=== PATIENT | female | born 1955 | race Caucasian/White ===

== ENCOUNTER 2016-04-20 15:19 | Emergency (ER) | payer OTHER ==
--- NOTE | 2016-04-20 17:31 | DIAGNOSTIC IMAGING REPORT ---
PROCEDURE: XR CHEST 2 VIEW INDICATION: SHORTNESS OF BREATH TECHNIQUE: PA and lateral views. COMPARISON: None. FINDINGS: Lungs are clear. Heart and mediastinum are normal. Thorax is normal. IMPRESSION: 1. Negative chest.
--- NOTE | 2016-04-20 19:47 | ED CLINICAL REPORT ---
Clinical Report - Physicians/Mid Levels [facility] [place] [address] 04/20/2016 15:22 Patient: UMA KHALIL Time Seen: 17:03 Apr 20 2016. Arrived- By private vehicle. Historian- patient. CPT: ER phys charges level 4 (#[id number]). HISTORY OF PRESENT ILLNESS Chief Complaint: DYSPNEA and PAIN UPON INSPIRATION. 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 The dyspnea is described as moderate and is worsened by walking and exertion and is improved by rest. The patient has had a cough and dyspnea on exertion. No sputum production, fever, sweating episodes or wheezing. No chest pain or discomfort, calf pain or foot swelling. (orthopnea). Similar symptoms previously: As bad. Diagnosis: chronic obstructive pulmonary disease and pneumonia (PE). Recent medical care: Not recently seen/assessed. REVIEW OF SYSTEMS No eye irritation, sore throat, sinus drainage, nausea or vomiting. No abdominal pain, fainting episodes, difficulty with urination, skin rash or enlarged lymph nodes. No joint pain. The patient has had a nasal discharge. All systems otherwise negative, except as recorded above. PAST HISTORY DVT - Deep Venous Thrombosis. Pulmonary Embolism. Hypertension. Sprain. Muscle Strain, Lower Extremity. Migraine Headache. Ovarian Cyst. Pneumonia. Allergic Reaction. --16:04 Chanell Walls R.N. ADDITIONAL SURGERIES: Knee Surgery. Medications: headache medication. Allergies: Acetaminophen. Augmentin. SOCIAL HISTORY Heavy tobacco smoker (cigarette)- less than 1 pack per day. ADDITIONAL NOTES The nursing notes have been reviewed. PHYSICAL EXAM Vital Signs: 04/20/2016 15:59 BP: 160/78. HR: 90. RR: 22. O2 saturation: 99%. Temp: 97.7 F. Appearance: Alert. Patient in mild distress. Eyes: Eyes normal inspection. ENT: Pharynx normal. Neck: Normal inspection. No jugular venous distention. Neck supple. CVS: Normal heart rate and rhythm. Heart sounds normal. Pulses normal. No cardiac murmur. Respiratory: Mild respiratory distress. Moderate right mid- costochondral tenderness. The tenderness is well-localized and reproduces the patient's subjective complaint. Decreased air movement. Breath sounds normal. Abdomen: Soft and nontender. Back: Normal inspection. Skin: Skin warm. Normal skin color. No rash. Extremities: Extremities exhibit normal ROM. No calf tenderness. No lower extremity edema. Neuro: Oriented X 3. No motor deficit. No sensory deficit. Reflexes normal. LABS, X-RAYS, AND EKG EKG: Normal EKG. Chest X-ray: No acute disease. Views: PA and lateral. Technique: good. The X-rays were independently viewed by me and interpreted contemporaneously by me. Laboratory Tests: UA-Culture if indicated: (JUNIOR: 04/20/2016 17:30) ( [facility] 04/20/2016 18:01) Final results Test Result Flag Units (Reference) URINE COLOR YELLOW URINE APPEARANCE CLEAR URINE GLUCOSE NEGATIVE (NEGATIVE) URINE BILIRUBIN NEGATIVE (NEGATIVE) URINE KETONE NEGATIVE (NEGATIVE) URINE SPECIFIC GRAVITY 1.020 (1.010-1.030) URINE PH 6.0 (5.0-8.0) URINE PROTEIN NEGATIVE (NEGATIVE) URINE UROBILINOGEN 0.2 EU/dL (0.2-1.0) URINE NITRITE NEGATIVE (NEGATIVE) URINE BLOOD NEGATIVE (NEGATIVE) URINE LEUK ESTERASE NEGATIVE (NEGATIVE) URINE RBC NONE SEEN rbc/hpf (0-1) URINE WBC 0-1 wbc/hpf (0-1) URINE EPITHELIAL CELLS 1-3 EPI/hpf (0-5) URINE BACTERIA NONE SEEN (NONE SEEN) URINE COMMENT CULT NOT INDICATED URINE CULTURES ARE SET-UP BASED ON THE FOLLOWING CRITERIA:POSITIVE NITRITEPOSITIVE LEUKOCYTE ESTERASEGREATER THAN 10 WHITE BLOOD CELLSMODERATE (2+) OR GREATER BACTERIA CBC w Diff: (JUNIOR: 04/20/2016 16:10) ( MsgRcvd 04/20/2016 17:22) Final results Test Result Flag Units (Reference) WHITE BLOOD COUNT 5.4 K/uL (4.5-11.5) RED BLOOD COUNT 5.02 M/uL (4.00-5.20) HEMOGLOBIN 14.9 gm/dL (12.0-16.0) HEMATOCRIT 45.7 % (36.0-46.0) MEAN CELL VOLUME 91 fL (80-100) MEAN CORPUSCULAR HGB 30 pg (26-34) MEAN CORPUSCULAR HGB CONC 33 g/dL (31-37) RED CELL DISTRIBUTION WIDTH 13.6 % (11.6-14.8) PLATELET COUNT 235 K/uL (150-400) NEUTROPHIL % 47.8 L % (50-75) LYMPH % 36.5 % (25-40) MONO % 11.2 % (3-14) EOSINOPHIL % 3.8 % (0-4) BASOPHIL % 0.7 % (0-2) [id number]: (JUNIOR: 04/20/2016 16:10) ( [facility] 04/20/2016 17:27) Final results Test Result Flag Units (Reference) D-DIMER QUANTITATIVE 0.41 ug/mLFEU (0.27-0.52) The primary value of this quantitative assay relates toits negative predictive value (i.e. exclusion) of pulmonaryembolism/deep vein thrombosis/DIC.Elevated levels of d-dimer may also occur with:, age, cancer, inflammation, liver disease,post-op, infection, hematoma, coronary disease, peripheralarteriopathy, bleeding disorders and thrombolytic treatment.Results should be correlated with other clinical andradiological data.Testing Methodology: Latex Immunoassay Urine Drug Screen: (JUNIOR: 04/20/2016 17:30) ( [facility] 04/20/2016 18:14) Final results Test Result Flag Units (Reference) AMPHETAMINE/METHAMPHETAMINE NEGATIVE (NEGATIVE) BARBITURATE NEGATIVE (NEGATIVE) BENZODIAZEPINE NEGATIVE (NEGATIVE) CANNABINOID NEGATIVE (NEGATIVE) COCAINE NEGATIVE (NEGATIVE) ECSTASY NEGATIVE (NEGATIVE) METHADONE NEGATIVE (NEGATIVE) OPIATE NEGATIVE (NEGATIVE) The urine drug screen is a qualitative screening test fordrug overdose and abuse. All screen results should beconsidered as presumptive.Drugs screened for are as follows:BenzodiazepinesCocaineAmphetamines/MetamphetaminesTHC (Tetrahydrocannabinol)OpiatesBarbituratesEcstasyMethadonePositive results are unconfirmed. For confirmation, notifythe lab for the specimen to be sent to the reference lab.All confirmations must be performed by a differentmethodology.The ingestion of natural herbal and plant productscontaining Ephedra/Ephedra metabolites can produce in urineone or more substances capable of cross reacting withamphetamine/methamphetamine immunoassays. These testsprovide a preliminary result only. A more specificalternative chemical method must be used to obtain aconfirmed analytical result. BNP: (JUNIOR: 04/20/2016 16:10) ( [facility] 04/20/2016 17:50) Final results Test Result Flag Units (Reference) B-TYPE NATRIURETIC PEPTIDE < 5.0 L pg/ml (5-100) TSH: (JUNIOR: 04/20/2016 16:10) ( [facility] 04/20/2016 17:45) Final results Test Result Flag Units (Reference) THYROID STIMULATING HORMONE 1.529 uIU/mL (0.30-3.74) CHEM 13 PANEL: (JUNIOR: 04/20/2016 16:10) ( [facility] 04/20/2016 17:41) Final results Test Result Flag Units (Reference) GLUCOSE 115 H mg/dL (70-110) BUN 10 mg/dL (7-18) CREATININE 0.8 mg/dL (0.6-1.3) Estimated GFR >60 mL/min Estimated GFR- >60 mL/min Note: Persistent reduction over 3 months in eGFR<60 mL/min/1.73 m2 defines CKD. Patients with eGFR values>=60 mL/min/1.73 m2 may also have CKD if evidence ofpersistent proteinuria. Additional information may be foundat www.kidney.org. SODIUM 142 mmol/L (136-145) POTASSIUM 3.8 mmol/L (3.5-5.1) CHLORIDE 105 mmol/L (98-107) CARBON DIOXIDE 31 mmol/L (21-32) CALCIUM 9.4 mg/dL (8.5-10.1) TOTAL PROTEIN 6.5 g/dL (6.4-8.2) ALBUMIN 3.4 g/dL (3.3-5.0) BILIRUBIN, TOTAL 0.1 mg/dL (0.0-1.0) ALKALINE PHOSPHATASE 93 U/L (46-116) AST (SGOT) 39 H U/L (15-37) ALT (SGPT) 29 U/L (12-78) MAGNESIUM 1.9 mg/dL (1.8-2.4) CPK 36 U/L (24-260) TROPONIN I <0.05 ng/mL (0.00-1.5) TROPONIN REFERENCE RANGE:<0.1 NEGATIVE0.1-1.5 INDETERMINANT>1.5 POSITIVE . PROGRESS AND PROCEDURES Course of Care: Heplock Albuterol HHN with pre-peak of 250 and post of 300. Pt breathing better. Patient/family counseled. Disposition: Discharged. Condition: stable and improved. CLINICAL IMPRESSION Acute exacerbation of COPD (emphysematous) Right and left chest wall pain. INSTRUCTIONS No strenuous activity. Rest. Avoid tobacco smoke. Do not smoke. Warnings: Further evaluation is necessary. GENERAL WARNINGS: Return or contact your physician immediately if your condition worsens or changes unexpectedly, if not improving as expected, or if other problems arise. Your Current Medications: CONTINUE TAKING THE FOLLOWING MEDICATIONS: headache medication*. Prescription Medications: Albuterol HFA oral inhaler: inhale 2 puffs via spacer every 4 hours as needed for difficulty breathing, until symptoms improve. Dispense one (1) unit. No refill. oxycodone 5 mg po q 6 hours prn pain. # 15 no refill. Follow-up: Follow up with your doctor in three days. Call for an appointment. Understanding of the discharge instructions verbalized by patient and family. Discharge instructions reviewed with and understanding was verbalized by spouse. (Electronically signed by Omar Mackenzie MD 04/21/2016 22:11)
--- NOTE | 2016-04-20 19:47 | ED NURSING NOTES ---
Clinical Report - Nurses [facility] [place] [address] 04/20/2016 15:22 Patient: UMA KHALIL TRIAGE Triage time 15:59. Acuity: LEVEL 3. Chief Complaint: SHORTNESS OF BREATH and DIFFICULTY BREATHING and (pain when taking a deep breath in.). Alert. No acute distress. ( Pt. states she has had x3 PE's in the past also has had multiple episodes of pneumonia. She is here tonight because she is concerned she may have another PE.). SEPSIS SCREEN: Sepsis Screen. Negative (no infection suspected/documented). ARLEEN COMA SCORE: [place] Coma Scale: 15- eyes open spontaneously (4); best verbal response- oriented x 4 (5); best motor response- obeys commands (6). --16:04 Chanell Walls R.N. 15:59 04/20/16. BP: 160/78. HR: 90. RR: 22. O2 saturation: 99%. Temp: 97.7 F. Pain level now 7/10. --16:04 Chanell Walls R.N. Weight: 57.6 kg stated. Height/Length: 65 inches Per Patient. BMI: 21.2. --16:03 Chanell Walls R.N. Medications headache medication. --16:03 Chanell Walls R.N. Allergies Augmentin. --16:03 Chanell Walls R.N. Acetaminophen. --16:03 Chanell Walls R.N. History Arrived by private vehicle. Historian: patient. Accompanied by friend. Primary physician (Dandy). Onset. (3 days ago). 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 (last dose around 1400 today). SOCIAL HX: Light tobacco smoker (cigarette)- less than 1/2 a pack per day. No alcohol use or drug use. No infectious disease exposure. ABUSE ASSESSMENT: Abuse assessment: The patient was asked "Do you feel safe in your home?" and "Has anyone hurt you or threatened to hurt you?". No report of abuse. SELF HARM ASSESSMENT: A self harm assessment was performed. The patient answered "no" to the question "Do you have thoughts of harming or killing yourself?" and "Have you recently had thoughts about harming or killing others?". NUTRITIONAL RISK ASSESSMENT: The nutritional risk assessment revealed no deficiencies. FUNCTIONAL ASSESSMENT: Functional assessment: no impairments noted. LEARNING NEEDS ASSESSMENT: The learning needs assessment revealed no barriers. --16:04 Chanell Walls R.N. PAST MEDICAL HX: Immunizations: status is unknown. --16:04 Chanell Walls R.N. PROBLEMS: DVT - Deep Venous Thrombosis. Pulmonary Embolism. Hypertension. Sprain. Muscle Strain, Lower Extremity. Migraine Headache. Ovarian Cyst. Pneumonia. Allergic Reaction. --16:04 Chanell Walls R.N. ADDITIONAL SURGERIES: Knee Surgery. --16:04 Chanell Walls R.N. Interventions ID band on patient. Ambulatory. --16:04 Chanell Walls R.N. PHYSICAL ASSESSMENT Ambulatory to room. GENERAL / NEURO / PSYCH: Alert. Appears in no acute distress. HEENT: Mucous membranes are pink. RESPIRATORY: No respiratory distress. Respirations not labored. CVS: Capillary refill less than 2 seconds. SKIN: Skin is warm and dry. --16:05 Chanell Walls R.N. NURSING PROGRESS NOTES monitoring analyst, pulse oximeter and NIBP monitor placed on patient; athletic monitor- Lead II; monitor alarms on. Patient gowned. Head of bed elevated. Two patient identifiers checked. Call light placed in reach. Side rails up x 2. Bed placed in lowest position. Brakes of bed on. Patient ready for evaluation- chart flagged. --16:05 Chanell Walls R.N. 16:14 04/20/2016 Site #1 started via IV in the right antecubital space with an 20g angiocath, with aseptic technique and good blood return; one attempt. Blood drawn: rainbow set. Labeled in the presence of the patient and sent to the lab. Saline lock flushed with 10 mL saline. --16:14 Chanell Walls R.N. Patient and family informed about reason for wait and about plan of care. --17:17 Chanell Walls R.N. 17:16 04/20/16. BP: 132/78. HR: 86. RR: 18. O2 saturation: 99%. --17:17 Chanell Walls R.N. Assisted patient to bathroom; tolerated well. --17:19 Chanell Walls R.N. Patient ID band checked for patient name and birthdate: patient confirmed. Instructions provided to collect clean catch urine and patient verbalized understanding. Clean catch urine collected with return of yellow-colored urine; sample sent to lab for urinalysis and culture. Specimen labeled in the presence of the patient. --17:28 Kimberlyn Benjamin, LYNSEY Tech1 18:57 04/20/2016 Toradol IVP 30 mg given over 2 minute(s) via site #1. Allergies verified and confirmed 5 rights. IV patency established. IV site checked: no pain, redness, or swelling. IV flushed thoroughly pre- and post-medication administration. --18:57 Chanell Walls R.N. 18:58 04/20/2016 Albuterol Neb TX 2.5 mg given. Given by the respiratory therapist. Allergies verified and confirmed 5 rights. --18:59 Chanell Walls R.N. 19:45 04/20/2016 Site #1 removed upon discharge. Catheter intact. Manual pressure and bandaid applied. --19:45 Chanell Walls R.N. DISPOSITION / DISCHARGE 19:51 04/20/16. BP: 146/94. HR: 85. RR: 18. O2 saturation: 100%. Temp: 89.2 F. Pain level now: 07/20. --19:55 Chanell Walls R.N. 19:58. Departure time: 1957. Condition at departure: stable. No learning barriers present. Discharge instructions provided and reviewed with the patient. Reviewed medication(s) side effects, precautions, dosing and course information. Prescription(s) given to the patient. Reviewed referral to family practice for followup. Patient verbalized understanding. Written instructions provided in Sami. The patient was discharged home and accompanied by drawer hardware worker. She left the Emergency Department ambulatory and via private vehicle. [employer] Operations Consultant driving. Medication list reviewed and validated. --20:02 Chanell Walls R.N. Locked/Released at 04/20/2016 20:03 by Chanell Walls R.N.
--- NOTE | 2016-04-20 19:47 | ED CLINICAL REPORT ---
Clinical Report - Physicians/Mid Levels [facility] [place] [address] 04/20/2016 15:22 Patient: UMA KHALIL Time Seen: 17:03 Apr 20 2016. Arrived- By private vehicle. Historian- patient. CPT: ER phys charges level 4 (#[id number]). HISTORY OF PRESENT ILLNESS Chief Complaint: DYSPNEA and PAIN UPON INSPIRATION. This started about 3 days GENERAL PRACTICE and is still present. The dyspnea is described as moderate and is worsened by walking and exertion and is improved by rest. The patient has had a cough and dyspnea on exertion. No sputum production, fever, sweating episodes or wheezing. No chest pain or discomfort, calf pain or foot swelling. (orthopnea). Similar symptoms previously: As bad. Diagnosis: chronic obstructive pulmonary disease and pneumonia (PE). Recent medical care: Not recently seen/assessed. REVIEW OF SYSTEMS No eye irritation, sore throat, sinus drainage, nausea or vomiting. No abdominal pain, fainting episodes, difficulty with urination, skin rash or enlarged lymph nodes. No joint pain. The patient has had a nasal discharge. All systems otherwise negative, except as recorded above. PAST HISTORY DVT - Deep Venous Thrombosis. Pulmonary Embolism. Hypertension. Sprain. Muscle Strain, Lower Extremity. Migraine Headache. Ovarian Cyst. Pneumonia. Allergic Reaction. --16:04 Chanell Walls R.N. ADDITIONAL SURGERIES: Knee Surgery. Medications: headache medication. Allergies: Acetaminophen. Augmentin. SOCIAL HISTORY Heavy tobacco smoker (cigarette)- less than 1 pack per day. ADDITIONAL NOTES The nursing notes have been reviewed. PHYSICAL EXAM Vital Signs: 04/20/2016 15:59 BP: 160/78. HR: 90. RR: 22. O2 saturation: 99%. Temp: 97.7 F. Appearance: Alert. Patient in mild distress. Eyes: Eyes normal inspection. ENT: Pharynx normal. Neck: Normal inspection. No jugular venous distention. Neck supple. CVS: Normal heart rate and rhythm. Heart sounds normal. Pulses normal. No cardiac murmur. Respiratory: Mild respiratory distress. Moderate right mid- costochondral tenderness. The tenderness is well-localized and reproduces the patient's subjective complaint. Decreased air movement. Breath sounds normal. Abdomen: Soft and nontender. Back: Normal inspection. Skin: Skin warm. Normal skin color. No rash. Extremities: Extremities exhibit normal ROM. No calf tenderness. No lower extremity edema. Neuro: Oriented X 3. No motor deficit. No sensory deficit. Reflexes normal. LABS, X-RAYS, AND EKG EKG: Normal EKG. Chest X-ray: No acute disease. Views: PA and lateral. Technique: good. The X-rays were independently viewed by me and interpreted contemporaneously by me. Laboratory Tests: UA-Culture if indicated: (JUNIOR: 04/20/2016 17:30) ( [facility] 04/20/2016 18:01) Final results Test Result Flag Units (Reference) URINE COLOR YELLOW URINE APPEARANCE CLEAR URINE GLUCOSE NEGATIVE (NEGATIVE) URINE BILIRUBIN NEGATIVE (NEGATIVE) URINE KETONE NEGATIVE (NEGATIVE) URINE SPECIFIC GRAVITY 1.020 (1.010-1.030) URINE PH 6.0 (5.0-8.0) URINE PROTEIN NEGATIVE (NEGATIVE) URINE UROBILINOGEN 0.2 EU/dL (0.2-1.0) URINE NITRITE NEGATIVE (NEGATIVE) URINE BLOOD NEGATIVE (NEGATIVE) URINE LEUK ESTERASE NEGATIVE (NEGATIVE) URINE RBC NONE SEEN rbc/hpf (0-1) URINE WBC 0-1 wbc/hpf (0-1) URINE EPITHELIAL CELLS 1-3 EPI/hpf (0-5) URINE BACTERIA NONE SEEN (NONE SEEN) URINE COMMENT CULT NOT INDICATED URINE CULTURES ARE SET-UP BASED ON THE FOLLOWING CRITERIA:POSITIVE NITRITEPOSITIVE LEUKOCYTE ESTERASEGREATER THAN 10 WHITE BLOOD CELLSMODERATE (2+) OR GREATER BACTERIA CBC w Diff: (JUNIOR: 04/20/2016 16:10) ( MsgRcvd 04/20/2016 17:22) Final results Test Result Flag Units (Reference) WHITE BLOOD COUNT 5.4 K/uL (4.5-11.5) RED BLOOD COUNT 5.02 M/uL (4.00-5.20) HEMOGLOBIN 14.9 gm/dL (12.0-16.0) HEMATOCRIT 45.7 % (36.0-46.0) MEAN CELL VOLUME 91 fL (80-100) MEAN CORPUSCULAR HGB 30 pg (26-34) MEAN CORPUSCULAR HGB CONC 33 g/dL (31-37) RED CELL DISTRIBUTION WIDTH 13.6 % (11.6-14.8) PLATELET COUNT 235 K/uL (150-400) NEUTROPHIL % 47.8 L % (50-75) LYMPH % 36.5 % (25-40) MONO % 11.2 % (3-14) EOSINOPHIL % 3.8 % (0-4) BASOPHIL % 0.7 % (0-2) [id number]: (JUNIOR: 04/20/2016 16:10) ( [facility] 04/20/2016 17:27) Final results Test Result Flag Units (Reference) D-DIMER QUANTITATIVE 0.41 ug/mLFEU (0.27-0.52) The primary value of this quantitative assay relates toits negative predictive value (i.e. exclusion) of pulmonaryembolism/deep vein thrombosis/DIC.Elevated levels of d-dimer may also occur with:, age, cancer, inflammation, liver disease,post-op, infection, hematoma, coronary disease, peripheralarteriopathy, bleeding disorders and thrombolytic treatment.Results should be correlated with other clinical andradiological data.Testing Methodology: Latex Immunoassay Urine Drug Screen: (JUNIOR: 04/20/2016 17:30) ( [facility] [place] 04/20/2016 18:14) Final results Test Result Flag Units (Reference) AMPHETAMINE/METHAMPHETAMINE NEGATIVE (NEGATIVE) BARBITURATE NEGATIVE (NEGATIVE) BENZODIAZEPINE NEGATIVE (NEGATIVE) CANNABINOID NEGATIVE (NEGATIVE) COCAINE NEGATIVE (NEGATIVE) ECSTASY NEGATIVE (NEGATIVE) METHADONE NEGATIVE (NEGATIVE) OPIATE NEGATIVE (NEGATIVE) The urine drug screen is a qualitative screening test fordrug overdose and abuse. All screen results should beconsidered as presumptive.Drugs screened for are as follows:BenzodiazepinesCocaineAmphetamines/MetamphetaminesTHC (Tetrahydrocannabinol)OpiatesBarbituratesEcstasyMethadonePositive results are unconfirmed. For confirmation, notifythe lab for the specimen to be sent to the reference lab.All confirmations must be performed by a differentmethodology.The ingestion of natural herbal and plant productscontaining Ephedra/Ephedra metabolites can produce in urineone or more substances capable of cross reacting withamphetamine/methamphetamine immunoassays. These testsprovide a preliminary result only. A more specificalternative chemical method must be used to obtain aconfirmed analytical result. BNP: (JUNIOR: 04/20/2016 16:10) ( [facility] [place] 04/20/2016 17:50) Final results Test Result Flag Units (Reference) B-TYPE NATRIURETIC PEPTIDE < 5.0 L pg/ml (5-100) TSH: (JUNIOR: 04/20/2016 16:10) ( [facility] 04/20/2016 17:45) Final results Test Result Flag Units (Reference) THYROID STIMULATING HORMONE 1.529 uIU/mL (0.30-3.74) CHEM 13 PANEL: (JUNIOR: 04/20/2016 16:10) ( [facility] 04/20/2016 17:41) Final results Test Result Flag Units (Reference) GLUCOSE 115 H mg/dL (70-110) BUN 10 mg/dL (7-18) CREATININE 0.8 mg/dL (0.6-1.3) Estimated GFR >60 mL/min Estimated GFR- >60 mL/min Note: Persistent reduction over 3 months in eGFR<60 mL/min/1.73 m2 defines CKD. Patients with eGFR values>=60 mL/min/1.73 m2 may also have CKD if evidence ofpersistent proteinuria. Additional information may be foundat www.kidney.org. SODIUM 142 mmol/L (136-145) POTASSIUM 3.8 mmol/L (3.5-5.1) CHLORIDE 105 mmol/L (98-107) CARBON DIOXIDE 31 mmol/L (21-32) CALCIUM 9.4 mg/dL (8.5-10.1) TOTAL PROTEIN 6.5 g/dL (6.4-8.2) ALBUMIN 3.4 g/dL (3.3-5.0) BILIRUBIN, TOTAL 0.1 mg/dL (0.0-1.0) ALKALINE PHOSPHATASE 93 U/L (46-116) AST (SGOT) 39 H U/L (15-37) ALT (SGPT) 29 U/L (12-78) MAGNESIUM 1.9 mg/dL (1.8-2.4) CPK 36 U/L (24-260) TROPONIN I <0.05 ng/mL (0.00-1.5) TROPONIN REFERENCE RANGE:<0.1 NEGATIVE0.1-1.5 INDETERMINANT>1.5 POSITIVE . PROGRESS AND PROCEDURES Course of Care: Heplock Albuterol HHN with pre-peak of 250 and post of 300. Pt breathing better. Patient/family counseled. Disposition: Discharged. Condition: stable and improved. CLINICAL IMPRESSION Acute exacerbation of COPD (emphysematous) Right and left chest wall pain. INSTRUCTIONS No strenuous activity. Rest. Avoid tobacco smoke. Do not smoke. Warnings: Further evaluation is necessary. GENERAL WARNINGS: Return or contact your physician immediately if your condition worsens or changes unexpectedly, if not improving as expected, or if other problems arise. Your Current Medications: CONTINUE TAKING THE FOLLOWING MEDICATIONS: headache medication*. Prescription Medications: Albuterol HFA oral inhaler: inhale 2 puffs via spacer every 4 hours as needed for difficulty breathing, until symptoms improve. Dispense one (1) unit. No refill. oxycodone 5 mg po q 6 hours prn pain. # 15 no refill. Follow-up: Follow up with your doctor in three days. Call for an appointment. Understanding of the discharge instructions verbalized by patient and family. Discharge instructions reviewed with and understanding was verbalized by spouse. (Electronically signed by Omar Mackenzie MD 04/21/2016 22:11)
--- NOTE | 2016-04-20 19:47 | ED ORDER SUMMARY ---
..... Patient: UMA KHALIL OrderSheet [facility] VisitID: [id number] [place] [address] 61y, F Registration Date/Time: 04/20/2016 ORDER SHEET Weight: 57.6 kg (stated) Allergies: Augmentin, Acetaminophen GENERAL ORDERS: [employer] (Continuous) (Respiratory Distress) (16:06 04/20/2016 SReitz R.N. per protocol) (16:07 LNations ER Tech1) Pulse oximeter (16:04/20/2016 SReitz R.N. per protocol) (16:07 LNations ER Tech1) EKG - ER Stat (16:04/20/2016 SReitz R.N. per protocol) (16:07 LNations ER Tech1) Chest 2V Urgent (17:09 04/20/2016 Katherin FONG) (17:26 LNations ER Tech1) BNP Urgent (17:10 04/20/2016 Katherin FONG) (17:32 NHouse ER Tech1) D-Dimer Urgent (17:10 04/20/2016 Katherin FONG) (17:32 NHouse ER Tech1) Cardiac Panel Stat (17:10 04/20/2016 Katherin FONG) (17:32 NHouse ER Tech1) TSH Urgent (17:10 04/20/2016 Katherin FONG) (17:32 VTouse ER Tech1) Urine Drug Screen Urgent (17:10 04/20/2016 Katherin FONG) (17:27 LNations ER Tech1) UA-Culture if indicated Urgent (17:10 04/20/2016 Katherin FONG) (17:27 LNations ER Tech1) MEDICATION ORDERS: Toradol IM 60 mg (NOW) (18:36 04/20/2016 Katherin FONG) (Cancelled: Other18:54 Katherin FONG) Albuterol Neb Tx 2.5 mg (NOW, HHN) (Sched once for X1); Routine (pre- and post peak flows.) (Sched once for X1) (18:36 04/20/2016 Katherin FONG) (18:59 SReitz R.N.) IV FLUIDS: IV Saline Lock (16:06 04/20/2016 Radha Posada per protocol) (Ack 16:54 Radha Posada) Toradol IV 30 mg (NOW) (18:55 04/20/2016 Katherin FONG) (18:57 Radha Posada) ORDER SHEET NOTES: [Electronically signed by Chanell Walls R.N. (20:03 04/20/2016)] [Electronically signed by Omar Mackenzie MD (22:11 04/21/2016)] [Electronically locked/signed by Chanell Walls R.N. (20:03 04/20/2016)]
--- NOTE | 2016-04-20 19:47 | ED ORDER SUMMARY ---
..... Patient: UMA KHALIL OrderSheet [facility] VisitID: [id number] [place] [address] 61y, F Registration Date/Time: 04/20/2016 ORDER SHEET Weight: 57.6 kg (stated) Allergies: Augmentin, Acetaminophen GENERAL ORDERS: Tr[employer]ooter (Continuous) (Respiratory Distress) (16:06 04/20/2016 SReitz R.N. per protocol) (16:07 LNations ER Tech1) Pulse oximeter (16:04/20/2016 SReitz R.N. per protocol) (16:07 LNations ER Tech1) EKG - ER Stat (16:04/20/2016 SReitz R.N. per protocol) (16:07 LNations ER Tech1) Chest 2V Urgent (17:09 04/20/2016 Katherin FONG) (17:26 LNations ER Tech1) BNP Urgent (17:10 04/20/2016 Katherin FONG) (17:32 NHouse ER Tech1) D-Dimer Urgent (17:10 04/20/2016 Katherin FONG) (17:32 NHouse ER Tech1) Cardiac Panel Stat (17:10 04/20/2016 Katherin FONG) (17:32 NHouse ER Tech1) TSH Urgent (17:10 04/20/2016 Katherin FONG) (17:32 UTouse ER Tech1) Urine Drug Screen Urgent (17:10 04/20/2016 Katherin FONG) (17:27 LNations ER Tech1) UA-Culture if indicated Urgent (17:10 04/20/2016 Katherin FONG) (17:27 LNations ER Tech1) MEDICATION ORDERS: Toradol IM 60 mg (NOW) (18:36 04/20/2016 Katherin FONG) (Cancelled: Other18:54 Katherin FONG) Albuterol Neb Tx 2.5 mg (NOW, HHN) (Sched once for X1); Routine (pre- and post peak flows.) (Sched once for X1) (18:36 04/20/2016 Katherin FONG) (18:59 SReitz R.N.) IV FLUIDS: IV Saline Lock (16:06 04/20/2016 Radha Posada per protocol) (Ack 16:54 Radha Posada) Toradol IV 30 mg (NOW) (18:55 04/20/2016 Katherin FONG) (18:57 Radha Posada) ORDER SHEET NOTES: [Electronically signed by Chanell Walls R.N. (20:03 04/20/2016)] [Electronically signed by Omar Mackenzie MD (22:11 04/21/2016)] [Electronically locked/signed by Chanell Walls R.N. (20:03 04/20/2016)]
--- NOTE | 2016-04-20 19:47 | ED NURSING NOTES ---
Clinical Report - Nurses [facility] [place] [address] 04/20/2016 15:22 Patient: UMA KHALIL TRIAGE Triage time 15:59. Acuity: LEVEL 3. Chief Complaint: SHORTNESS OF BREATH and DIFFICULTY BREATHING and (pain when taking a deep breath in.). Alert. No acute distress. ( Pt. states she has had x3 PE's in the past also has had multiple episodes of pneumonia. She is here tonight because she is concerned she may have another PE.). SEPSIS SCREEN: Sepsis Screen. Negative (no infection suspected/documented). ARLEEN COMA SCORE: [place] Coma Scale: 15- eyes open spontaneously (4); best verbal response- oriented x 4 (5); best motor response- obeys commands (6). --16:04 Chanell Walls R.N. 15:59 04/20/16. BP: 160/78. HR: 90. RR: 22. O2 saturation: 99%. Temp: 97.7 F. Pain level now 7/10. --16:04 Chanell Wlals R.N. Weight: 57.6 kg stated. Height/Length: 65 inches Per Patient. BMI: 21.2. --16:03 Chanell Walls R.N. Medications headache medication. --16:03 Chanell Walls R.N. Allergies Augmentin. --16:03 Chanell Walls R.N. Acetaminophen. --16:03 Chanell Walls R.N. History Arrived by private vehicle. Historian: patient. Accompanied by friend. Primary physician (Dandy). Onset. (3 days ago). 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 (last dose around 1400 today). SOCIAL HX: Light tobacco smoker (cigarette)- less than 1/2 a pack per day. No alcohol use or drug use. No infectious disease exposure. ABUSE ASSESSMENT: Abuse assessment: The patient was asked "Do you feel safe in your home?" and "Has anyone hurt you or threatened to hurt you?". No report of abuse. SELF HARM ASSESSMENT: A self harm assessment was performed. The patient answered "no" to the question "Do you have thoughts of harming or killing yourself?" and "Have you recently had thoughts about harming or killing others?". NUTRITIONAL RISK ASSESSMENT: The nutritional risk assessment revealed no deficiencies. FUNCTIONAL ASSESSMENT: Functional assessment: no impairments noted. LEARNING NEEDS ASSESSMENT: The learning needs assessment revealed no barriers. --16:04 Chanell Walls R.N. PAST MEDICAL HX: Immunizations: status is unknown. --16:04 Chanell Walls R.N. PROBLEMS: DVT - Deep Venous Thrombosis. Pulmonary Embolism. Hypertension. Sprain. Muscle Strain, Lower Extremity. Migraine Headache. Ovarian Cyst. Pneumonia. Allergic Reaction. --16:04 Chanell Walls R.N. ADDITIONAL SURGERIES: Knee Surgery. --16:04 Chanell Walls R.N. Interventions ID band on patient. Ambulatory. --16:04 Chanell Walls R.N. PHYSICAL ASSESSMENT Ambulatory to room. GENERAL / NEURO / PSYCH: Alert. Appears in no acute distress. HEENT: Mucous membranes are pink. RESPIRATORY: No respiratory distress. Respirations not labored. CVS: Capillary refill less than 2 seconds. SKIN: Skin is warm and dry. --16:05 Chanell Walls R.N. NURSING PROGRESS NOTES monitor car operator, pulse oximeter and NIBP monitor placed on patient; campus monitor- Lead II; monitor alarms on. Patient gowned. Head of bed elevated. Two patient identifiers checked. Call light placed in reach. Side rails up x 2. Bed placed in lowest position. Brakes of bed on. Patient ready for evaluation- chart flagged. --16:05 Chanell Walls R.N. 16:14 04/20/2016 Site #1 started via IV in the right antecubital space with an 20g angiocath, with aseptic technique and good blood return; one attempt. Blood drawn: rainbow set. Labeled in the presence of the patient and sent to the lab. Saline lock flushed with 10 mL saline. --16:14 Chanell Walls R.N. Patient and family informed about reason for wait and about plan of care. --17:17 Chanell Walls R.N. 17:16 04/20/16. BP: 132/78. HR: 86. RR: 18. O2 saturation: 99%. --17:17 Chanell Walls R.N. Assisted patient to bathroom; tolerated well. --17:19 Chanell Walls R.N. Patient ID band checked for patient name and birthdate: patient confirmed. Instructions provided to collect clean catch urine and patient verbalized understanding. Clean catch urine collected with return of yellow-colored urine; sample sent to lab for urinalysis and culture. Specimen labeled in the presence of the patient. --17:28 Kimberlyn Benjamin, LYNSEY Tech1 18:57 04/20/2016 Toradol IVP 30 mg given over 2 minute(s) via site #1. Allergies verified and confirmed 5 rights. IV patency established. IV site checked: no pain, redness, or swelling. IV flushed thoroughly pre- and post-medication administration. --18:57 Chanell Walls R.N. 18:58 04/20/2016 Albuterol Neb TX 2.5 mg given. Given by the respiratory therapist. Allergies verified and confirmed 5 rights. --18:59 Chanell Walls R.N. 19:45 04/20/2016 Site #1 removed upon discharge. Catheter intact. Manual pressure and bandaid applied. --19:45 Chanell Walls R.N. DISPOSITION / DISCHARGE 19:51 04/20/16. BP: 146/94. HR: 85. RR: 18. O2 saturation: 100%. Temp: 89.2 F. Pain level now: 07/20. --19:55 Chanell Walls R.N. 19:58. Departure time: 1957. Condition at departure: stable. No learning barriers present. Discharge instructions provided and reviewed with the patient. Reviewed medication(s) side effects, precautions, dosing and course information. Prescription(s) given to the patient. Reviewed referral to family practice for followup. Patient verbalized understanding. Written instructions provided in [place]. The patient was discharged home and accompanied by glass scullion. She left the Emergency Department ambulatory and via private vehicle. Manager Science driving. Medication list reviewed and validated. --20:02 Chanell Walls R.N. Locked/Released at 04/20/2016 20:03 by Chanell Walls R.N.
--- NOTE | 2016-04-21 22:11 | ED DISCHARGE INSTRUCTIONS ---
Patient: UMA KHALIL General Instructions [facility] VisitID: [id number] [place] [address] 61y, F Registration Date/Time: 04/20/2016 Acute exacerbation of COPD (emphysematous) Right and left chest wall pain. INSTRUCTIONS No strenuous activity. Rest. Avoid tobacco smoke. Do not smoke. Warnings: Further evaluation is necessary. GENERAL WARNINGS: Return or contact your physician immediately if your condition worsens or changes unexpectedly, if not improving as expected, or if other problems arise. Your Current Medications: CONTINUE TAKING THE FOLLOWING MEDICATIONS: headache medication*. Prescription Medications: Albuterol HFA oral inhaler: inhale 2 puffs via spacer every 4 hours as needed for difficulty breathing, until symptoms improve. Dispense one (1) unit. No refill. oxycodone 5 mg po q 6 hours prn pain. # 15 no refill. Follow-up: Follow up with your doctor in three days. Call for an appointment. Understanding of the discharge instructions verbalized by patient and family. Discharge instructions reviewed with and understanding was verbalized by spouse. ADDITIONAL INFORMATION COPD Flare Both emphysema and chronic bronchitis are forms of chronic obstructive pulmonary disease (COPD). It is most often caused by many years of smoking tobacco. Many things can make your lung disease suddenly get worse. These causes include the common cold, pneumonia, acute bronchitis, missing doses of your regular breathing medicines, or being around smoke, dust, or other air pollutants. A COPD flare may last 7 to 14 days. Your doctor may prescribe medicineto relax your airways and prevent wheezing. Your doctor may also prescribe antibiotics if he or she thinks you havea bacterial infection. Prednisone can helpease inflammation in a severe attack. Home care Here are things you can do at home: Drink lots of water or other fluids (at least 10 glasses a day) during an attack. This will loosen lung secretions and make it easier to breathe. If you have heart or kidney disease, check with your doctor before you drink extra amounts of fluids. Take prescribed medicine exactly at the times advised. If you have a hand-held inhaler or aerosol breathing medicine, don't use it more than once every 4 hours, unless your doctor tells you to. If you were givenan antibiotic or prednisone, take all of the medicine even if you are feeling better after a few days. Don't smoke. Avoid being aroundthe smoke of others. If you were given an inhaler, use it exactly as directed. If you need to use it more often than prescribed, your condition may be getting worse. Call your doctor. Follow-up care Follow up with your health care provider.If you are 65 or older or have chronic asthma or COPD, you should get a single dose of the pneumococcal vaccine and aflu shot each year. You may need a second dose of the pneumococcal vaccine if you had the first dose at a younger age. Your health care provider will let you know if you need a second dose. For all other people, the usual dose for the pneumococcal vaccine is 1 or 2 shots. Yourprovider can discuss this with you. When to seek medical care Get prompt medical attention ifany of these occur: Increased wheezing or shortness of breath Need to use your inhalers more often than usual without relief Fever of 100.4F(38C) or higher, or as directed by your health care provider Coughing up lots of dark-colored or bloody sputum (mucus) Chest pain with each breath You do not start to improve within 24 hours Albuterol Sulfate Pressurized inhalation, suspension What is this medicine? ALBUTEROL (al BYOO ter ole) is a bronchodilator. It helps open up the airways in your lungs to make it easier to breathe. This medicine is used to treat and to prevent bronchospasm. How should I use this medicine? This medicine is for inhalation through the mouth. Follow the directions on your prescription label. Take your medicine at regular intervals. Do not use more often than directed. Make sure that you are using your inhaler correctly. Ask you doctor or health care provider if you have any questions. Talk to your health and safety technician regarding the use of this medicine in children. Special care may be needed. What side effects may I notice from receiving this medicine? Side effects that you should report to your doctor or health patient care representative as soon as possible: allergic reactions like skin rash, itching or hives, swelling of the face, lips, or tongue breathing problems chest pain feeling faint or lightheaded, falls high blood pressure irregular heartbeat fever muscle cramps or weakness pain, tingling, numbness in the hands or feet vomiting Side effects that usually do not require medical attention (report to your doctor or health patient care representative if they continue or are bothersome): cough difficulty sleeping headache nervousness or trembling stomach upset stuffy or runny nose throat irritation unusual taste What may interact with this medicine? anti-infectives like chloroquine and pentamidine caffeine cisapride diuretics medicines for colds medicines for depression or for emotional or psychotic conditions medicines for weight loss including some herbal products methadone some antibiotics like clarithromycin, erythromycin, levofloxacin, and linezolid some heart medicines steroid hormones like dexamethasone, cortisone, hydrocortisone theophylline thyroid hormones What if I miss a dose? If you miss a dose, use it as soon as you can. If it is almost time for your next dose, use only that dose. Do not use double or extra doses. Where should I keep my medicine? Keep out of the reach of children. Store at room temperature between 15 and 30 degrees C (59 and 86 degrees F). The contents are under pressure and may burst when exposed to heat or flame. Do not freeze. This medicine does not work as well if it is too cold. Throw away any unused medicine after the expiration date. Inhalers need to be thrown away after the labeled number of puffs have been used or by the expiration date; whichever comes first. Ventolin HFA should be thrown away 12 months after removing from foil pouch. Check the instructions that come with your medicine. What should I tell my health care provider before I take this medicine? They need to know if you have any of the following conditions: diabetes heart disease or irregular heartbeat high blood pressure pheochromocytoma seizures thyroid disease an unusual or allergic reaction to albuterol, levalbuterol, sulfites, other medicines, foods, dyes, or preservatives or trying to get breast-feeding What should I watch for while using this medicine? Tell your doctor or health patient care representative if your symptoms do not improve. Do not use extra albuterol. If your asthma or bronchitis gets worse while you are using this medicine, call your doctor right away. If your mouth gets dry try chewing sugarless gum or sucking hard candy. Drink water as directed. You have been given the following additional information: COPD Flare Albuterol Sulfate Pressurized inhalation, suspension No strenuous activity. Rest. (Electronically signed by Omar Mackenzie MD 04/21/2016 22:11)
--- NOTE | 2016-04-21 22:12 | ED MAR SUMMARY ---
..... Medication Administration Record [facility] [address] [place] [address] Patient: UMA KHALIL Visit ID: [id number] 61y, F Weight: 57.6 kg Height/Length: 65 in BMI: 21.2 ALLERGIES: Acetaminophen, Augmentin Given 18:57 04/20/2016 Chanell Walls RElia Medication Administered: TORADOL [IVP], Dose: 30 mg IVP over 2 minute(s), Site: #1 right . Medication Ordered: Toradol IV 30 mg (NOW). Given 18:58 04/20/2016 Chanell Walls, RNayaNNaya Medication Administered: ALBUTEROL [NEB TX], Dose: 2.5 mg Neb TX. Medication Ordered: Albuterol Neb Tx 2.5 mg (NOW, N) (Sched once for X1); Routine (pre- and post peak flows.).
--- NOTE | 2016-04-21 22:12 | ED MAR SUMMARY ---
..... Medication Administration Record [facility] [address] [place] [address] Patient: UMA KHALIL Visit ID: [id number] 61y, F Weight: 57.6 kg Height/Length: 65 in BMI: 21.2 ALLERGIES: Acetaminophen, Augmentin Given 18:57 04/20/2016 Chanell Walls RElia Medication Administered: TORADOL [IVP], Dose: 30 mg IVP over 2 minute(s), Site: #1 right . Medication Ordered: Toradol IV 30 mg (NOW). Given 18:58 04/20/2016 Chanell Walls, RNayaNNaya Medication Administered: ALBUTEROL [NEB TX], Dose: 2.5 mg Neb TX. Medication Ordered: Albuterol Neb Tx 2.5 mg (NOW, N) (Sched once for X1); Routine (pre- and post peak flows.).
--- NOTE | 2016-04-21 22:12 | ED MED RECONCILIATION SUMMARY ---
Patient: UMA KHALIL Medication Reconciliation Report [facility] VisitID: [id number] [place] [address] 61y, F Registration Date/Time: 04/20/2016 Weight: 57.6 kg Height/Length: 65 in. BMI: 21.2 ALLERGIES: Acetaminophen, Augmentin The patient's Home Medications are listed below: CONTINUE TAKING THE FOLLOWING MEDICATIONS: headache medication The source(s) of the original Home Medication information: Not obtained. The following Medications were given to the patient in the Emergency Department: Toradol [IVP] IVP 30 mg, administered: 04/20/2016 6:57:00 PM Albuterol [Neb Tx] Neb TX 2.5 mg, administered: 04/20/2016 6:58:00 PM The following Medications were prescribed to the patient: oxycodone 5 mg po q 6 hours prn pain. # 15 no refill. -- Omar Mackenzie MD Albuterol HFA oral inhaler: inhale 2 puffs via spacer every 4 hours as needed for difficulty breathing, until symptoms improve. Dispense one (1) unit. No refill. -- Omar Mackenzie MD
--- NOTE | 2016-04-21 22:12 | ED MED RECONCILIATION SUMMARY ---
Patient: UMA KHALIL Medication Reconciliation Report [facility] VisitID: [id number] [place] [address] 61y, F Registration Date/Time: 04/20/2016 Weight: 57.6 kg Height/Length: 65 in. BMI: 21.2 ALLERGIES: Acetaminophen, Augmentin The patient's Home Medications are listed below: CONTINUE TAKING THE FOLLOWING MEDICATIONS: headache medication The source(s) of the original Home Medication information: Not obtained. The following Medications were given to the patient in the Emergency Department: Toradol [IVP] IVP 30 mg, administered: 04/20/2016 6:57:00 PM Albuterol [Neb Tx] Neb TX 2.5 mg, administered: 04/20/2016 6:58:00 PM The following Medications were prescribed to the patient: oxycodone 5 mg po q 6 hours prn pain. # 15 no refill. -- Omar Mackenzie MD Albuterol HFA oral inhaler: inhale 2 puffs via spacer every 4 hours as needed for difficulty breathing, until symptoms improve. Dispense one (1) unit. No refill. -- Omar Mackenzie MD
== END 2016-04-20 19:58 | disposition home or self-care (01) ==
LOC: ED SRH 15:19
DX: J44.1 Chronic obstructive pulmonary disease with (acute) exacerbation (principal); J43.9 Emphysema, unspecified; R07.89 Other chest pain; I10 Essential (primary) hypertension; F17.210 Nicotine dependence, cigarettes, uncomplicated; Z88.1 Allergy status to other antibiotic agents; Z88.8 Allergy status to other drugs, medicaments and biological substances
CPT/HCPCS: 90004; 90100; 90616; 91320; 91556; 92610; 92720; 92760; 92761; 92762; 92763; 92764; 92765; 92766; 92767; 93140; 95059